=== PATIENT | female | born 1950 | race Caucasian/White ===

== ENCOUNTER 2016-09-03 15:37 | Emergency (ER) | payer BC ==
[~2016-09-03] VITALS: Ht 154.9 cm; Wt 84.1 kg
[~2016-09-03 15:37] MED LIST: ACETIC ACID2 % AU; AF-MIGRAIN1 PO; BD PEN NEEDL32 GX4MM SC; BLACK COHOSH540 MG PO; BYDUREON SC; BYETTA5 MCG SC; CIPRO500 MG PO; CIPRODEX1 ML AS; CIPRODEX1 ML OT; CIPROFLOXACN500 MG PO; COLACE100 MG PO; COQ10100 MG PO; CORTISPORIN OTI10 ML AD; DEBROX6.5 % AS; EFFEXOR XR150 MG PO; EFFEXOR XR75 MG PO; EFFEXOR75 MG PO; FLONASE NASAL50 MCG; FLUARIX QUADRIV1 IN1 IM; FLUARIX QUADRIV1 INJ IM; HYDROCHLOROTH12.5 MG PO; KEFLEX500 MG PO; LEVAQUIN500 MG PO; LEVAQUIN750 MG PO; LEVOFLOXACIN750 MG OR; Levaquin PO; MAGNESIUM400 MG PO; MEDDOSEPAK PO; METFORMIN1000 MG PO; MULTIVITAM10 OR; NAPROSYN500 MG PO; NASONEX50 MCG/AC; NORVASC10 M1 PO; NORVASC10 MG PO; OMEPRAZOLE40 MG PO; PREDNISONE10 MG PO; PREDNISONE20 MG PO; PRESERVISION PO; PRILOSEC20 MG PO; PRILOSEC40 MG PO; PROAIR HFA IN; PROBIOTIC1 TAB; QVAR80 MCG IN; RED YEAST RICE EXTRA; ROBITUSSIN AC10 ML PO; SIMVASTATIN10 MG PO; SIMVASTATIN20 MG PO; SIMVASTATIN80 MG OR; SIMVASTATIN80 MG PO; SINGULAIR10 MG OR; TIZANIDINE4 MG PO; TRIAMCINOLON0.11 EX; VENTOLIN HF1 IN; VITAMIN D31000 UNI3 PO; VITAMIN D32000 UNIT OR; WILD YAM PO; ZESTRIL/PRINIV2.5 MG PO; ZITHROMAX250 MG PO; [UNRECOGNIZED DRUG - OTHER] OR
[2016-09-03 16:29] LABS: INFLUENZA A NONE DETECTED (NONE DETECT); INFLUENZA B NONE DETECTED (NONE DETECT)
[2016-09-03 16:42] LABS: HEMATOCRIT 36.8 % (37.0-47.0); HEMOGLOBIN 12.5 g/dl (12.0-16.0); IMMATURE GRANULOCYTES 0.4 % (0.0-1.0); MEAN CELL VOLUME 81.8 fL CALC (80.0-100.0); MEAN CORPUSCULAR HGB 27.8 pG CALC (26.0-32.0); NEUT# 6.03 thou/uL (2.00-7.15); RED BLOOD COUNT 4.5 mill/uL (4.20-5.60); RED CELL DISTRI WIDTH 13.7 % (11.5-15.5)
[2016-09-03 16:55] LABS: ALBUMIN 4.1 g/dL (3.2-5.0); ALKALINE PHOSPHATASE 96 u/l (38-126); ANION GAP 15 (6-22 (CALC)); BILIRUBIN, TOTAL 0.3 mg/dL (0.0-1.4); BUN 11 mg/dL (8-23); BUN/CREATININE RATIO 19 (12-20 (CALC)); CALCIUM 9.3 mg/dL (8.4-10.2); CARBON DIOXIDE 25 mmol/l (22-30); CHLORIDE 102 mmol/l (95-108); CREATININE 0.6 mg/dL (0.5-1.0); GFR > 60 ML/MIN (>=60 (CALC)); GFR FOR AFR.AMER. > 60 ML/MIN (>=60 (CALC)); GLUCOSE 108 mg/dL (82-115); POTASSIUM 4.1 mmol/l (3.5-5.1); SGOT/AST 15 u/l (9-36); SGPT/ALT 27 u/l (11-66); SODIUM 139 mmol/l (137-146)
[2016-09-03] MEDS ORDERED: FLONASE AL50 MCG/ACT (17:18)
[2016-09-03] MEDS ORDERED: ZPAK PO (17:18)
[2016-09-03 17:21] VITALS: BP 140/89
== END 2016-09-03 17:27 | disposition home or self-care (01) | DRG 153 ==
LOC: ED 15:37
PROVIDERS: Emergency Medicine
DX: J02.0 Streptococcal pharyngitis (principal); R09.81 Nasal congestion; R50.9 Fever, unspecified

== ENCOUNTER 2017-06-19 17:54 | Emergency (ER) | payer OTHER, MEDICARE ==
[~2017-06-19] VITALS: Ht 154.9 cm; Wt 77.3 kg
[~2017-06-19 17:54] MED LIST changes: +FLONASE AL50 MCG/ACT; +ZPAK PO
[2017-06-19 18:59] LABS: HEMATOCRIT 35.4 % (37.0-47.0); HEMOGLOBIN 12.1 g/dl (12.0-16.0); IMMATURE GRANULOCYTES 0.6 % (0.0-1.0); MEAN CELL VOLUME 81.4 fL CALC (80.0-100.0); MEAN CORPUSCULAR HGB 27.8 pG CALC (26.0-32.0); MEAN CORPUSCULAR HGB CONC 34.2 g/L CALC (32.0-36.0); NEUT# 4.73 thou/uL (2.00-7.15); RED BLOOD COUNT 4.35 mill/uL (4.20-5.60); RED CELL DISTRI WIDTH 14.1 % (11.5-15.5)
[2017-06-19 19:04] LABS: ANION GAP 18 (6-22 (CALC)); BUN 16 mg/dL (8-23); BUN/CREATININE RATIO 27 (12-20 (CALC)); CARBON DIOXIDE 25 mmol/l (22-30); CHLORIDE 100 mmol/l (95-108); CREATININE 0.6 mg/dL (0.5-1.0); GFR > 60 ML/MIN (>=60 (CALC)); GFR FOR AFR.AMER. > 60 ML/MIN (>=60 (CALC)); POTASSIUM 4.1 mmol/l (3.5-5.1); SODIUM 138 mmol/l (137-146)
[2017-06-19 22:19] VITALS: BP 119/57
== END 2017-06-19 22:19 | disposition home or self-care (01) | DRG 204 ==
LOC: ED 17:54
PROVIDERS: Family Medicine
DX: R07.81 Pleurodynia (principal); S06.9X0A Unspecified intracranial injury without loss of consciousness, initial encounter; R11.0 Nausea; V49.49XA Driver injured in collision with other motor vehicles in traffic accident, initial encounter; Y92.414 Local residential or business street as the place of occurrence of the external cause
CPT/HCPCS: Q9967

== ENCOUNTER 2021-09-15 16:59 | Emergency (ER) | payer OTHER, MEDICARE ==
[~2021-09-15] VITALS: Ht 154.9 cm; Wt 66.0 kg
[2021-09-15] MEDS ORDERED: TRAMADOL HCL50 MG PO (19:54)
[2021-09-15] MEDS ORDERED: KEFLEX500 MG PO (19:54)
[2021-09-15 20:09] VITALS: BP 143/78
[2021-09-22] MEDS ORDERED: TRAMADOL HCL50 MG PO (13:20)
== END 2021-09-15 20:30 | disposition home or self-care (01) ==
LOC: ED 16:59
DX: S00.83XA Contusion of other part of head, initial encounter (principal); S01.511A Laceration without foreign body of lip, initial encounter; S00.81XA Abrasion of other part of head, initial encounter; M25.562 Pain in left knee; E11.9 Type 2 diabetes mellitus without complications; J45.909 Unspecified asthma, uncomplicated; I34.1 Nonrheumatic mitral (valve) prolapse; W01.0XXA Fall on same level from slipping, tripping and stumbling without subsequent striking against object, initial encounter; Y92.009 Unspecified place in unspecified non-institutional (private) residence as the place of occurrence of the external cause; Z88.0 Allergy status to penicillin

== ENCOUNTER 2022-06-02 09:10 | Emergency (ER) | payer MEDICARE ==
[~2022-06-02] VITALS: Ht 154.9 cm; Wt 63.0 kg
[2022-06-02] VITALS (14 sets, daily range): BP systolic 99–125; BP diastolic 56–86
[~2022-06-02 09:10] MED LIST changes: +TRAMADOL HCL50 MG PO
[2022-06-02 12:57] LABS: BASO% 0.5 % (0-3); EOS% 6.7 % (0-8); HEMATOCRIT 34.8 % (37.0-47.0); HEMOGLOBIN 11.6 g/dl (12.0-16.0); IMMATURE GRANULOCYTES 0.3 % (0.0-5.0); LYMPH% 13.2 % (15-41); MEAN CELL VOLUME 85.5 fL CALC (80.0-100.0); MEAN CORPUSCULAR HGB 28.5 pG CALC (26.0-32.0); MEAN CORPUSCULAR HGB CONC 33.3 g/dL CAL (32.0-36.0); MONO% 8.5 % (2-13); NEUT# 5.31 thou/uL (2.00-7.15); NEUT% 70.8 % (42-76); RED BLOOD COUNT 4.07 mill/uL (4.20-5.60); RED CELL DISTRI WIDTH 14.1 % (11.5-15.5)
[2022-06-02 13:31] LABS: ALBUMIN 4.1 g/dL (3.2-5.0); ALKALINE PHOSPHATASE 82 u/l (38-126); ANION GAP 12 (6-22 (CALC)); BILIRUBIN, TOTAL 0.1 mg/dL (0.02-1.3); BUN 16 mg/dL (8-23); BUN/CREATININE RATIO 24 (12-20 (CALC)); CARBON DIOXIDE 27 mmol/l (22-30); CHLORIDE 102 mmol/l (95-108); CREATININE 0.7 mg/dL (0.5-1.0); GFR FOR AFR.AMER. > 60 ML/MIN (>=60 (CALC)); GFR OTHER RACES > 60 ML/MIN (>=60 (CALC)); POTASSIUM 4.3 mmol/l (3.5-5.1); SGOT/AST 37 u/l (9-36); SODIUM 137 mmol/l (137-146); TOTAL PROTEIN 6.6 g/dL (6.3-8.2)
[2022-06-02] MEDS ORDERED: DOXYCYCLINE100 MG PO (14:16)
[2022-06-02] MEDS ORDERED: LEVOCETIRIZINE D5 MG PO (14:21)
== END 2022-06-02 14:38 | disposition home or self-care (01) ==
LOC: ED 09:10
PROVIDERS: Nurse Practitioner
DX: J32.9 Chronic sinusitis, unspecified (principal); E11.9 Type 2 diabetes mellitus without complications; J45.909 Unspecified asthma, uncomplicated; I34.1 Nonrheumatic mitral (valve) prolapse; Z79.84 Long term (current) use of oral hypoglycemic drugs; Z88.0 Allergy status to penicillin; Z20.822 Contact with and (suspected) exposure to COVID-19